=== PATIENT | female | born 1970 | race Caucasian/White ===

== ENCOUNTER 2016-05-18 06:11 | Day surgery (SDC) | payer BC ==
[~2016-05-18 06:11] MED LIST: Lactated Ringers 1,000 ML IV SCH; Sodium Chloride 0.9% 10 ML Syringe FLUSH PRN; Sodium Chloride 0.9% 2.5 ML Syringe FLUSH PRN; ceFAZolin 2 GM in Premix Bag 1 BAG IV ONE
[2016-05-18] MEDS ORDERED: Heparin Sodium 100 Units/ML 3 ML Syringe ONE (07:21)
[2016-05-18] MEDS ORDERED: Bupivacaine 0.5% 10 ML SDV ONE (07:21)
[2016-05-18] MEDS ORDERED: Lidocaine 1% 20 ML MDV ONE (07:21)
--- NOTE | 2016-05-18 07:21 | PCM.PREANE ---
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 Respiratory: Reports: no symptoms ("stuffy nose" d/t changing air filter yesterday - lungs clear) Cardiovascular: Reports: no symptoms GI: Reports: no symptoms Other: Reports: none - PHYSICAL ASSESSMENT O2 Sat by Pulse Oximetry: 96 RR: 16 Vital Signs: Last Vital Signs Temp 97.9 F 05/18/16 06:40 Pulse 98 05/18/16 06:40 Resp 16 05/18/16 06:40 BP 133/83 05/18/16 06:40 Pulse Ox 96 05/18/16 06:40 Height: 5 ft 7 in Weight: 299 lb NPO Status Date: 05/17/16 NPO Status Time: 23:00 ASA Class: 3 Mental Status: alert & oriented x3 Airway Class: Mallampati = 3 (small narrow mouth) Dentition: Reports: normal dentition Thyro-Mental Finger Breadths: 3 Mouth Opening Finger Breadths: 3 ROM/Head Extension: full Respiratory Status: lungs clear to auscultation bilaterally, other (allergies/ "stuffy sinuses") Cardiovascular Status: regular rate & rhythm, normal S1, S2, no murmur, blood pressure WNL - ALLERGIES Allergies/Adverse Reactions: Allergies Allergy/AdvReac Type Severity Reaction Status Date / Time celecoxib [From Celebrex] Allergy Airway Verified 05/13/16 12:14 Tightness ketorolac [From Toradol] Allergy Airway Verified 05/13/16 12:14 Tightness naproxen Allergy Swelling Verified 05/13/16 12:14 rofecoxib [From Vioxx] Allergy Airway Verified 05/13/16 12:14 Tightness - BLOOD Blood Available: No Product(s) Available: None - ANESTHESIA PLAN Free Text/Narrative:: GA - LMA vs ETT Preop Beta Maria E: No Anesthesia Type Planned: general anesthesia - ACKNOWLEDGEMENTS Pt an appropriate candidate for the planned anesthesia: Yes Alternatives and risks of anesthesia discussed w pt/guardian: Yes Pt/Guardian understands and agree with anesthesia plan: Yes PreAnesthesia Questionnaire HEENT History: Reports: Allergic rhinitis, Other (see below) Other HEENT History: wears glasses Cardiovascular History: Reports: Hypertension (boarderline - no meds - just been "watching") Respiratory History: Reports: Asthma (States only uses inhaler when she has a cold - did use it yesterday with sinus flare up d/t chaning air filter - will use prior to anesthesia today), Sleep apnea [employer] ATTENDANT History: Reports: Musculoskeletal History: Reports: Arthritis Neurological History: Reports: Migraines Psychiatric History: Reports: Anxiety, Depression Endocrine/Metabolic History: Reports: Obesity/BMI 30+ Hematologic History: Reports: Anemia - Past Surgical History Head Surgeries/Procedures: Reports: None GI Surgical History: Reports: Bariatric procedure (chronic mineral deficiency d/ t hernietta-en Y - difficult IV access and infusions needed - reason for port placement) Female Surgical History: Reports: D&C, Hysterectomy, Salpingo-oophorectomy Other Female Surgeries/Procedures: bladder sling with hysterectomy Musculoskeletal Surgical History: Reports: Arthroscopic knee - SUBSTANCE USE Smoking Status *Q: Never Smoker Recreational Drug Use History: No - HOME MEDS Home Medications: Home Meds Albuterol Sulfate [Proair Hfa] 2 puff INH ASDIRECTED PRN 05/13/16 [History] Baclofen 2 - 3 tab PO BID 05/13/16 [History] Cholecalciferol (Vitamin D3) [Vitamin D3] 50,000 units PO ASDIRECTED 05/13/16 [ History] Cyanocobalamin (Vitamin B12) [Vitamin B12] 3,000 mcg SL WEEKLY 05/13/16 [History ] Gabapentin [Neurontin] 1 tab PO TID 05/13/16 [History] Hydrocodone/Acetaminophen [Hydrocodon-Acetaminophn 10-325] 1 tab PO ASDIRECTED PRN 05/13/16 [History] Ibuprofen 1 tab PO ASDIRECTED PRN 05/13/16 [History] Methocarbamol 500 mg PO TID 05/13/16 [History] Multivitamin [Multivitamins] 1 tab PO DAILY 05/13/16 [History] Oxybutynin Chloride 5 mg PO DAILY 05/13/16 [History] Ranitidine HCl 150 mg PO DAILY 05/13/16 [History] Vitamin B Complex 1 tab PO DAILY 05/13/16 [History] - CURRENT (IN HOUSE) MEDS Current Meds: Current Medications Lactated Ringer's (Ringers, Lactated) 1,000 mls @ 125 mls/hr IV ASDIRECTED DAHIANA Last Admin: 05/18/16 07:01 Dose: 125 mls/hr Sodium Chloride (Saline Flush) 10 ml FLUSH ASDIRECTED PRN PRN Reason: Keep Vein Open Sodium Chloride (Saline Flush) 2.5 ml FLUSH ASDIRECTED PRN PRN Reason: Keep Vein Open Discontinued Medications Cefazolin Sodium/Dextrose 2 gm (/ Premix) 50 mls @ 100 mls/hr IV ONETIME ONE Stop: 05/17/16 14:29
[2016-05-18] MEDS ORDERED: Iopamidol 408 MG/ML 50 ML SDV ONE (07:22)
[2016-05-18] MEDS ORDERED: Lidocaine 2% 5 ML SDV ONE (07:24)
[2016-05-18] MEDS ORDERED: Propofol 200 MG/20 ML SDV ONE (07:25)
[2016-05-18] MEDS ORDERED: Midazolam 1 MG/ML 2 ML SDV ONE (07:25)
[2016-05-18] MEDS ORDERED: fentaNYL 100 MCG/2 ML SDV ONE ×2 (07:25→09:14)
--- NOTE | 2016-05-18 09:05 | PCM.OPNOTE ---
- General Post-Op/Procedure Note Date of Surgery/Procedure: 05/18/16 Operative Procedure(s): Removal left subclavian vein port a cath. Placement right internal jugular vein port a cath. Findings: Intact left subclavian vein port a cath. Pre Op Diagnosis: Macronutrient deficiency Post-Op Diagnosis: same Anesthesia Technique: General LMA Primary Surgeon: Marleny Sotelo Condition: Good
[2016-05-18] MEDS: fentaNYL 100 MCG/2 ML SDV IVPUSH PRN ×2 (09:17→09:23)
--- NOTE | 2016-05-18 09:29 | PCM.POSTAN ---
POST ANESTHESIA ASSESSMENT - MENTAL STATUS Mental Status: alert, oriented - RESPIRATORY Respiratory Status: respiratory rate WNL, airway patent, O2 saturation stable - CARDIOVASCULAR CV Status: pulse rate WNL, blood pressure stable - GASTROINTESTINAL GI Status: no symptoms - PAIN Pain Score: 2 (Stable and smiling) - POST OP HYDRATION Hydration Status: adequate & stable - OBSERVATIONS Free Text/Narrative:: No wheezing post op - on RA
--- NOTE | 2016-05-18 09:54 | PCM48HPAN ---
Post Anesthesia Note - EVALUATION WITHIN 48HRS OF ANESTHETIC Vital Signs in Normal Range: Yes Patient Participated in Evaluation: Yes Respiratory Function Stable: Yes Airway Patent: Yes Cardiovascular Function Stable: Yes Hydration Status Stable: Yes Pain Control Satisfactory: Yes Nausea and Vomiting Control Satisfactory: Yes Mental Status Recovered: Yes
--- NOTE | 2016-05-18 10:41 | CR ---
EXAMINATION: Portable chest radiograph. HISTORY: Port-A-Cath placement. FINDINGS: The trachea is midline. The cardiomediastinal silhouette is within normal limits. No pulmonary infil trates, effusions or pneumothorax. There is a right-sided portacatheter with tip in good position. Osseous structures appear unremarkable. IMPRESSION: Right-sided portacatheter with tip in good position.
[2016-05-18 11:17] VITALS: BP 141/83
--- NOTE | 2016-05-18 18:37 | OR ---
SURGEON: DERRICK DAN MD DATE OF PROCEDURE: 05/18/2016 PREOPERATIVE DIAGNOSES: Deficiency macronutrients, Port-A-Cath malfunction. POSTOPERATIVE DIAGNOSES: Deficiency macronutrients, Port-A-Cath malfunction. PROCEDURE PERFORMED: Removal of left subclavian vein Port-A-Cath, placement of a right internal jugular vein Port-A-Cath. ANESTHESIA: General LMA. FLUIDS: 1200 mL crystalloid. ESTIMATED BLOOD LOSS: 5 mL. COMPLICATIONS: None. FINDINGS: Intact left subclavian Port-A-Cath. 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 The patient is a difficult IV stick and so has had these infusions done via a Port-A-Cath. She had a Port-A-Cath placed by Dr. Villegas many years ago. In 2011, Dr. Lozano revised the Port-A-Cath. Lately, the patient has been having difficulty with access as well as blood draws and infusions. Her last infusion had to be canceled due to port malfunction. I discussed with the patient that given these circumstances, I would not revise this port but instead remove it and place a new one. We discussed the procedure and expected perioperative course. We discussed the risks, including bleeding, infection, damage to surrounding structures, including hemothorax or pneumothorax. The patient verbalized understanding and wishes to proceed. PROCEDURE IN DETAIL: The patient was brought in to the operating room suite and placed on the operating room table in supine position. A time-out was completed verifying the patient's name, age, date of , allergies, and procedure to be performed. Both arms were tucked to the patient's side and a shoulder roll was placed under her shoulders. Monitored anesthesia care was induced and LMA was placed in the patient's airway. The neck and chest were prepped and draped in the usual standard fashion. The patient was then placed in [place] position. I turned my attention first to the left subclavian port. The area overlying her previous incision was anesthetized with 1% lidocaine. I then used a 15 blade to open up her previous incision. Using cautery, I dissected down to the level of the port. Using blunt dissection. I freed up the port from its scar capsule. There were no sutures adhering this port to the chest wall. Once the scar capsule was opened, I was able to remove the Port-A-Cath without difficulty. The wound was then checked for hemostasis and any bleeding was coagulated with electrocautery. The left chest wound site was then closed with interrupted 3-0 Vicryl in the subcutaneous fat and a running 4-0 Monocryl subcuticular stitch. Steri-Strips and a sterile dressing were applied. I then turned my attention to the right neck and chest. An ultrasound covered in a sterile probe cover was brought into the field. I used to assess the vascular anatomy of the right side of the neck. I was able to see very large right internal jugular vein and associated carotid artery. The decision was made to perform a right internal jugular Port-A-Cath placement. The area overlying the right internal jugular vein was anesthetized with 1% lidocaine. I then anesthetized the right chest wall port site and tubing tract with 0.5% Marcaine. Using the ultrasound and a finder needle, I gained access into the right internal jugular vein under direct visualization. A guidewire was then placed down the right internal jugular vein without difficulty. A C-arm was brought in to verify the placement of the guidewire within the SVC. Once this was confirmed, I then turned my attention to the patient's right chest wall. A 3 cm incision was made 2 fingerbreadths below the clavicle and using cautery, I dissected down through the subcutaneous fat. The patient had a large amount of subcutaneous fat over this area and a decision was made not to adhere the port itself to the chest wall as it would be inaccessible should I perform it this way. Instead, a subcutaneous pocket was created close to the skin edge itself. The port tubing was then tunneled up to the guidewire insertion site on the skin. A dilation device was then placed over the guidewire and C-arm was used to dilate the internal jugular vein under direct visualization. The guidewire and dilation device were removed leaving just an introducer sheath in place. The Port-A-Cath tubing was then placed down the sheath. I secured the tubing in place well. My scrub nurse peeled away the sheath. The tubing was then dunked inside the neck and the sheath removed. C-arm was brought in and the catheter tubing was pulled back to where the tip of the tubing was within the superior vena cava. The catheter tubing was then aspirated and a good return of venous blood was obtained. The catheter tubing was then trimmed and at the right chest wall site and placed on the Port-A-Cath device itself. The Port-A-Cath was then aspirated and flushed with injectable saline and then locked with 4 mL of heparin. The Port-A-Cath was then placed in the subcutaneous pocket and secured to the surrounding subcutaneous fat with interrupted 2-0 Prolene sutures. The right chest wall site was then closed with interrupted 3-0 Vicryl within the subcutaneous fat and the skin closed with a running 4-0 subcuticular suture. Steri-Strips and sterile dressings were applied. All images were saved from the case. Counts were complete and correct at the end of the case. The patient was awoken and taken to the PACU in stable condition. ERNST SALDANA /[id number] MTDD
== END 2016-05-18 10:15 | disposition home or self-care (01) ==
LOC: MW.SDS 06:11
PROVIDERS: ATTEND Surgery
DX: T85.618A Breakdown (mechanical) of other specified internal prosthetic devices, implants and grafts, initial encounter (principal); F41.9 Anxiety disorder, unspecified; J45.909 Unspecified asthma, uncomplicated; K21.9 Gastro-esophageal reflux disease without esophagitis; G47.30 Sleep apnea, unspecified; E61.8 Deficiency of other specified nutrient elements; Z88.8 Allergy status to other drugs, medicaments and biological substances; Z79.899 Other long term (current) drug therapy; Z98.84 Bariatric surgery status; Z90.710 Acquired absence of both cervix and uterus; Z98.890 Other specified postprocedural states; Z78.9 Other specified health status
CPT/HCPCS: 36561; 36590; 71010; 76000; J0690; J1642; J2250; J3010; J7120; 00532; 88300; J2704; Q9966